=== PATIENT | female | born 1995 | race Caucasian/White ===

== ENCOUNTER 2018-01-06 07:03 | Emergency (ER) | payer OTHER, MEDICAID, SELFPAY ==
[2018-01-06 07:08] VITALS: BP 109/76; PULSE 57; RESP 20; TEMP 36.2; O2SAT 98; BMI 30.2
[2018-01-06 08:07] VITALS: BP 121/83; PULSE 57; RESP 16; O2SAT 97
--- NOTE | 2018-01-06 08:07 | ED_ITS ---
HPI - Skin/Abscess/Foreign Bdy General Chief complaint: Skin/Abscess/Foreign Body Stated complaint: PAINFUL GROWTH ON LEFT INDEX FINGER Time Seen by Provider: 01/06/18 07:08 Source: patient Mode of arrival: ambulatory Limitations: no limitations History of Present Illness HPI narrative: 22-year-old female presents with painful rash on left 2nd finger present for 3 days. She states the pain is now spreading up into her arm and elbow. She notes that it got red and then has now formed a small blister with pus. Denies fevers or chills. Denies trauma. Denies history of herpetic francisco. Works at [employer] Medications Medication Instructions Recorded Confirmed 87-iron [id number] 1 tab PO Q DAY #0 03/29/17 01/06/18 [Tri-Tabs DHA] Previous Rx's Medication Instructions Recorded sertraline [Zoloft] 50 mg PO QDAY #30 tab 11/15/17 cephalexin [Keflex] 500 mg PO TID #30 cap 01/06/18 Allergies Allergy/AdvReac Type Severity Reaction Status Date / Time No Known Allergies Allergy Uncoded 11/29/17 12:42 Review of Systems Review of Systems All systems reviewed & are unremarkable except as noted in HPI and below Constitutional Denies chills, Denies fever(s), Denies lethargy and Denies weakness Eyes Denies change in vision, Denies eye discharge, Denies irritation and Denies loss of vision ENT Ears, Nose, Mouth, and Throat: Denies change in voice, Denies neck pain and Denies sore throat Cardiovascular Denies chest pain, Denies irregular heart rhythm, Denies lightheadedness, Denies palpitations, Denies dyspnea, Denies dyspnea on exertion and Denies orthopnea Respiratory Denies cough, Denies dyspnea, Denies dyspnea on exertion and Denies wheezing Gastrointestinal Gastrointestinal: Denies abdominal pain, Denies change in bowel habits, Denies diarrhea, Denies nausea and Denies vomiting Genitourinary Denies hematuria, Denies flank pain, Denies urinary incontinence and Denies urinary urgency Musculoskeletal Denies neck pain Integumentary/Breasts Denies pruritus, Reports erythema, Reports rash, Reports skin pain, Reports sores and Denies wounds Neurologic Denies confusion, Denies loss of vision and Denies weakness Psychiatric Denies anxiety, Denies confusion, Denies depression, Denies homicidal ideation and Denies suicidal ideation Endocrine Denies palpitations Hematologic/Lymphatic Denies easy bruising Allergic/Immunologic Denies wheezing [facility] Surgical History Status post delivery (04/12/17) Social History Smoking Status: Current every day smoker Exam Initial Vital Signs Initial Vital Signs: Vital Signs Temperature 97.1 F L 01/06/18 07:08 Pulse Rate 57 L 01/06/18 07:08 Respiratory Rate 20 01/06/18 07:08 Blood Pressure 109/76 01/06/18 07:08 Pulse Oximetry 98 01/06/18 07:08 Const General: cooperative and well developed Nutritional Appearance: well nourished Orientation: alert, awake, oriented x3 and not confused HENMT Head: normocephalic and atraumatic Ears: external ears normal and TM's normal bilaterally Nose: external nose normal and No nasal discharge Face and sinus: sinuses nontender, face symmetric, no sinus tenderness and No dry mucous membranes Mouth: oral mucosae normal and moist mucous membranes Teeth and gingiva: dentition normal Throat: tonsils normal and uvula midline Eyes General: appearance normal, both eyes and all related structures Eyelids: eyelids normal Conjunctivae: conjunctivae normal Sclera: sclerae normal Pupils: PERRL EOM: EOM intact bilaterally Neck Neck: normal visual inspection, trachea midline, No lymphadenopathy, No midline deformity and No JVD Lymphatic: No lymphedema Chest Chest: normal inspection of the chest Resp Effort & Inspection: normal respiratory effort, able to speak in complete sentences, no respiratory distress and no use of accessory muscles Auscultation: clear to auscultation bilaterally, no rales, no rhonchi and no wheezes Cardio Rate: regular rate Rhythm: regular rhythm Heart Sounds: no click, no gallops, no murmurs and no rubs Pulses: normal peripheral pulses GI Inspection: non-distended Palpation: soft, no hepatosplenomegaly, No guarding, No pulsatile mass and No tender Auscultation: normal bowel sounds Back/Spine/Pelvis Back: No CVA tenderness Cervical Spine: cervical ROM normal and No pain with cervical ROM Thoracic/Lumbar Spine: thoracic and lumbar spine normal to inspection Skin General: no rashes or lesions noted, No jaundice and No petechiae Lesions: lesion noted (4 mm pustule filled with purulent discharge overlying the lateral aspect of the distal 2nd finger on the left, on erythematous base) Other: No streaking up the arm. No swelling lymph nodes in the epitrochlear or axillary region. Tenderness up to the epitrochlear area Neuro General: alert, oriented x3, gait normal and no focal motor deficits Cranial Nerves: CN's II-XI intact bilaterally Speech: speech normal Motor: strength 5/5 throughout Sensory Exam: no sensory deficits noted Extrem General: full ROM, no clubbing, cyanosis or edema, no pedal edema and no calf tenderness Psych Appearance: well kempt Mental Status: mental status grossly normal Attitude: cooperative Thought Content: normal and suicidality Judgment: judgment good Course Vital Signs - 8 hr 01/06/18 07:08 Temperature 97.1 F L Pulse Rate 57 L Respiratory Rate 20 Blood Pressure 109/76 Pulse Oximetry 98 MDM - Skin/Abscess/Foreign Bdy MDM Narrative Medical decision making narrative: I considered herpetic francisco versus cellulitis versus abscess. She did have a large vesicle filled with purulent fluid and this was collected for culture. Will treat with Keflex. The findings do not completely fit with herpetic francisco because the fluid is not clear, but it does not appear to be an abscess, certainly not a deep abscess and I do not appreciate diffuse surrounding erythema or streaking up the arm. Discharge Plan Departure Patient Disposition: Home, Self-Care Clinical Impression: Abscess of finger of left hand Instructions: DI for Skin Abscess Activity Restrictions/Additional Instructions: Thank you for trusting is with your care today. No dangerous cause for your symptoms was identified. The culture was collected and will be processed over the next 2 days. Take the antibiotics as directed. Follow up with your primary care provider within 1 week if you're not improving. Return to the ER for new or worsening symptoms. Prescriptions: New cephalexin [Keflex] 500 mg capsule 500 mg PO TID Qty: 30 RF: 0 No Action 87-iron [id number] [Tri-Tabs DHA] 1 EACH combo pack 1 tab PO Q DAY Qty: 0 RF: 0 sertraline [Zoloft] 50 MG tablet 50 mg PO QDAY Qty: 30 RF: 1 Referrals: Nell Stark DO [Primary Care Provider] -
== END 2018-01-06 08:13 | disposition home or self-care (01) ==
PROVIDERS: Emergency Provider Emergency Medicine; PCP Family Medicine
DX: L02.512 Cutaneous abscess of left hand (principal)
CPT/HCPCS: 99282

== ENCOUNTER 2018-12-15 07:04 | Emergency (ER) | payer OTHER, MEDICAID, SELFPAY ==
[2018-12-15 07:26] VITALS: BP 125/84; PULSE 60; RESP 16; TEMP 36.7; O2SAT 100; BMI 31.2
--- NOTE | 2018-12-15 07:52 | ED.DENTAL ---
HPI - Dental/Oral General Chief complaint: Dental/Oral Stated complaint: wisdom tooth pain right/pressure on other teeth Time Seen by Provider: 12/15/18 07:10 Source: patient and family Mode of arrival: ambulatory Limitations: no limitations History of Present Illness HPI Narrative: 23-year-old female smoker with few other medical problems presents with a chief complaint of worsening right lower dental pain over the course of past few days. She has an upcoming appointment with her dentist to address her underlying wisdom tooth problems. She denies any facial swelling. She denies any fever chills nor nausea or vomiting. She has had no recent injury. she is not dizzy nor weak or lightheaded. She has no trouble eating or swallowing 1. Onset (ago): day(s) Duration: constant Severity: moderate Relieving factors: nothing Exacerbating factors: chewing, cold and heat Context: history of dental caries Treatment prior to arrival: topical analgesic Related Data Home Medications Medication Instructions Recorded Confirmed 87-iron [id number] 1 tab PO Q DAY #0 03/29/17 01/06/18 [Tri-Tabs DHA] Previous Rx's Medication Instructions Recorded cephalexin [Keflex] 500 mg PO TID #30 cap 01/06/18 sertraline [Zoloft] 50 mg PO QDAY #30 tab 02/19/18 ketorolac 10 mg PO Q6H PRN #20 tab 12/15/18 Allergies Allergy/AdvReac Type Severity Reaction Status Date / Time No Known Allergies Allergy Uncoded 11/29/17 12:42 Review of Systems Review of Systems ROS Unobtainable: All systems reviewed & are unremarkable except as noted in HPI and below Constitutional Denies chills, Denies fever(s), Denies lethargy and Denies weakness Eyes Denies change in vision, Denies eye discharge, Denies irritation and Denies loss of vision ENT Ears, Nose, Mouth, and Throat: Denies change in voice, Reports dental pain, Denies neck pain and Denies sore throat Cardiovascular Denies chest pain, Denies irregular heart rhythm, Denies lightheadedness, Denies palpitations, Denies dyspnea, Denies dyspnea on exertion and Denies orthopnea Respiratory Denies cough, Denies dyspnea, Denies dyspnea on exertion and Denies wheezing Gastrointestinal Gastrointestinal: Denies abdominal pain, Denies change in bowel habits, Denies diarrhea, Denies nausea and Denies vomiting Genitourinary Denies hematuria, Denies flank pain, Denies urinary incontinence and Denies urinary urgency Musculoskeletal Denies neck pain Integumentary/Breasts Denies pruritus, Denies erythema, Denies rash and Denies wounds Neurologic Denies confusion, Denies loss of vision and Denies weakness Psychiatric Denies anxiety, Denies confusion, Denies depression, Denies homicidal ideation and Denies suicidal ideation Endocrine Denies palpitations Hematologic/Lymphatic Denies easy bruising Allergic/Immunologic Denies wheezing [facility] Surgical History (Updated 12/19/17 @ 06:12 by Nell Stark DO) Status post delivery (04/12/17) Social History Smoking Status: Current every day smoker Social History Smoking Status: Current every day smoker Exam Narrative Exam Narrative: GEN: AOx3 and in mild distress EYES: Pupils are equal, round, and reactive to light and accommodation. Extraoccular muscles are intact bilaterally. There is no subconjunctival hemorrhage or exudate. FACE: No facial swelling, redness or external tenderness. Intraoral exam notes some erythema and tenderness to palpation around right lower molar. No significant swelling and certainly no drainage CHEST: Lungs are clear to auscultation bilaterally and free of wheezes, rales, or rhonchi. Heart rate is regular rhythm, there are no murmurs, clicks, rubs, or gallops. There is no chest wall tenderness. ABD: Abdomen is soft and nontender. There is no guarding or rebound. Bowel sounds are normal in all 4 quadrants. There is no mass or organomegaly. EXT: Full painless ROM of all extremities with no loss of sensation or strength. SKIN: Warm, pink, and dry. No erythema or rash Initial Vital Signs Initial Vital Signs: Vital Signs Temperature 98.1 F 12/15/18 07:26 Pulse Rate 60 12/15/18 07:26 Respiratory Rate 16 12/15/18 07:26 Blood Pressure 125/84 12/15/18 07:26 Pulse Oximetry 100 12/15/18 07:26 Procedures [facility] [place] Procedure Name of Procedure: dental block Side (if applicable): right Location: inferior alveolar Time out performed: Yes Technique/Description of procedure performed: Topical analgesic placed followed by use of control syringe, 27 gauge inch and half needle and instillation of about 3 cc of a lidocaine Marcaine mix. Very minimal bleeding, tolerated quite well by patient with near complete and immediate analgesia Patient tolerated procedure: Well Complications: none Course Vital Signs - 8 hr 12/15/18 07:26 Temperature 98.1 F Pulse Rate 60 Respiratory Rate 16 Blood Pressure 125/84 Pulse Oximetry 100 Discharge Plan Departure Patient Disposition: Home Clinical Impression: Pain, dental Discharge Date/Time: 12/15/18 08:23 Interventions: ED Discharge Assessment Last Done: 12/15/18 08:23 Instructions: DI for Dental Pain Activity Restrictions/Additional Instructions: *You have been diagnosed with [dental pain ] *What to do: *Take medications as directed *Follow up with your primary care provider in 2-3 days, call for an appointment. Let them know you were seen in the Emergency Department and that we ask that you be seen in follow up *Return to ER if you should have any new, worsening or concerning symptoms Prescriptions: New ketorolac 10 mg tablet 10 mg PO Q6H PRN (Reason: pain) Qty: 20 RF: 0 No Action 87-iron [id number] [Tri-Tabs DHA] 1 EACH combo pack 1 tab PO Q DAY Qty: 0 RF: 0 sertraline [Zoloft] 50 mg tablet 50 mg PO QDAY Qty: 30 RF: 1 cephalexin [Keflex] 500 mg capsule 500 mg PO TID Qty: 30 RF: 0 Referrals: Nell Stark DO [Primary Care Provider] - Stand Alone Forms: Work Release Note
[2018-12-15 08:20] VITALS: BP 118/89; PULSE 55; RESP 16; O2SAT 99
== END 2018-12-15 08:23 | disposition home or self-care (01) ==
PROVIDERS: Emergency Provider Emergency Medicine; PCP Family Medicine
DX: K08.89 Other specified disorders of teeth and supporting structures (principal)
CPT/HCPCS: 64402; 99282; 99283

== ENCOUNTER → 2020-05-16 13:47 | Outpatient (CLI) | payer OTHER, MEDICAID, SELFPAY ==
[2020-05-20 11:32] LABS: COVID19 Sendout Not Detected (Not Detected)
== END ==
PROVIDERS: PCP Family Medicine; Visit Provider Nurse Practitioner
DX: Z11.59 Encounter for screening for other viral diseases (principal); R05 Cough
CPT/HCPCS: 87635